=== PATIENT | female | born 2000 | race Caucasian/White ===

== ENCOUNTER 2020-02-22 11:23 | Emergency (ER) | payer OTHER ==
[~2020-02-22] VITALS: Ht 162 cm; Wt 61.2 kg
[2020-02-22 11:42] LABS: BILIRUBIN,URINE NEGATIVE (NEGATIVE); CLARITY,URINE CLEAR; COLOR,URINE YELLOW; GLUCOSE, URINE (UA) NEGATIVE (NEGATIVE); KETONES,URINE TRACE (NEGATIVE); LEUKOCYTE ESTERASE ,URINE NEGATIVE (NEGATIVE); NITRITE,URINE NEGATIVE (NEGATIVE); PH,URINE 5.5 (5-9); PROTEIN,URINE NEGATIVE (NEGATIVE)
[2020-02-22 11:49] LABS: BACTERIA,URINE NEGATIVE /HPF; RBC,URINE 25-50 /HPF; SQUAMOUS EPITHELIAL CELL,UR 0-2 /HPF
[2020-02-22 12:08] LABS: BASOPHILS % (AUTO) 0 % (0-10); EOSINOPHILS # (AUTO) 0.1 10^3/uL (0.0-0.3); EOSINOPHILS % (AUTO) 1 % (0-10); HEMATOCRIT 39 % (35-52); LYMPHOCYTES # (AUTO) 2.1 10^3/uL (1.0-4.0); LYMPHOCYTES % (AUTO) 21 % (12-44); MEAN CORPUSCULAR HEMOGLOBIN 30 pg (25-34); MEAN CORPUSCULAR HGB CONC 33 g/dL (32-36); MEAN CORPUSCULAR VOLUME 92 fL (80-99); MEAN PLATELET VOLUME 9.4 fL (9.0-12.2); MONOCYTES # (AUTO) 0.7 10^3/uL (0.0-1.0); MONOCYTES % (AUTO) 7 % (0-12); NEUTROPHILS # (AUTO) 6.9 10^3/uL (1.8-7.8); NEUTROPHILS % (AUTO) 70 % (42-75); PLATELET COUNT 327 10^3/uL (130-400); WHITE BLOOD COUNT 9.8 10^3/uL (4.3-11.0)
--- NOTE | 2020-02-22 12:11 | ED GU-Female ---
General Chief Complaint: OB < 20 WEEKS Stated Complaint: VAGINAL BLEEDING, CRAMPING 4 WKS Nursing Triage Note: pt presents to ed from home with complaints of vaginal bleeding and lower abdominal cramping starting this am. reports she had a positive preg test on 02/17/20. pt reports her last menstraul period was end of December Source: patient Exam Limitations: no limitations (CASSY BAJWA STUDENT) History of Present Illness Date Seen by Provider: Feb 22, 2020 Time Seen by Provider: 11:35 Initial Comments Ms. Ball is a 19 y/o F who presents to ED with chief complaint of cramping and vaginal bleeding. She said that she has had vaginal bleeding constant since this morning with lower abdominal cramping. Her LMP was "end of December." test on 02/16 was positive. She said cramping and vaginal bleeding now is worse than her normal periods. She said she has not tried to take anything for the cramping, which she rates as an 8/10 pain. She reports passing "blood clots." She has PMH of hypothyroidism on levothyroxine. She denies past surge tim. She said she occasionally drinks EtOH and denies cigarette or drug use. (CASSY BAJWA MED STUDENT) Allergies and Home Medications Allergies Coded Allergies: No Known Drug Allergies (Unverified , 02/22/20) Patient Home Medication List Home Medication List Reviewed: Yes (CASSY BAJWA STUDENT) Review of Systems Review of Systems Constitutional: No chills, No diaphoresis, No dizziness, No fever EENTM: No blurred vision, No nose congestion Respiratory: No cough, No short of breath Cardiovascular: No chest pain, No palpitations Gastrointestinal: No abdominal pain, No constipation, No diarrhea, No nausea, No vomiting Genitourinary: denies flank pain; hematuria : Yes LMP: Jan 14, 2020 Musculoskeletal: No back pain; muscle cramps Skin: no symptoms reported Psychiatric/Neurological: No Symptoms Reported Endocrine: No Symptoms Reported (CASSY BAJWA MED STUDENT) Past Ekoasgm-Idmsqo-Nukgjp Hx Patient Social History Alcohol Use: Occasionally Uses Recreational Drug Use: No Smoking Status: Never a Smoker Recent Foreign Travel: No Contact w/Someone Who Travel: No Recent Infectious Disease Expo: No Recent Hopitalizations: No Physical Abuse: No Sexual Abuse: No Mistreated: No Fear: No (CASSY BAJWA STUDENT) Seasonal Allergies Seasonal Allergies: No (CASSY BAJWA STUDENT) Past Medical History Surgeries: No Respiratory: No Cardiac: No Neurological: No Genitourinary: No Gastrointestinal: No Musculoskeletal: No Endocrine: Yes Hypothyroidsim HEENT: No Cancer: No Psychosocial: No Integumentary: No Blood Disorders: No (CASSY BAJWA STUDENT) Physical Exam Vital Signs Vital Signs - First Documented 02/22/20 02/22/20 11:37 13:57 Temp 35.9 Pulse 79 Resp 20 B/P (MAP) 113/83 Pulse Ox 98 (NILA HAN MD) Vital Signs Capillary Refill : (CASSY BAJWA STUDENT) Height, Weight, BMI Height: '" Weight: lbs. oz. kg; 23.00 BMI Method: General Appearance: WD/WN, no apparent distress HEENT: PERRL/EOMI, normal ENT inspection Neck: full range of motion, normal inspection Cardiovascular: regular rate, rhythm, no edema, no JVD, no murmur Respiratory: chest non-tender, lungs clear, normal breath sounds, no respiratory distress, no accessory muscle use Gastrointestinal: normal bowel sounds, soft, no organomegaly, no pulsatile mass, tenderness (Mild TTP in suprapubic area) Back: normal inspection; No no CVA tenderness Extremities: normal range of motion, non-tender, normal inspection, no calf tenderness, normal capillary refill Neurologic/Psychiatric: no motor/sensory deficits, alert, normal mood/affect, oriented x 3 Skin: normal color, warm/dry (CASSY BAJWA STUDENT) Progress/Results/Core Measures Suspected Sepsis SIRS Temperature: Pulse: Respiratory Rate: Laboratory Tests 02/22/20 12:01: White Blood Count 9.8 Blood Pressure / Mean: Laboratory Tests 02/22/20 12:01: Platelet Count 327 (CASSY BAJWA STUDENT) Results/Orders Lab Results (NILA HAN MD) My Orders (NILA HAN MD) Vital Signs/I&O (NILA HAN MD) Vital Signs/I&O Capillary Refill : (SCHLOEGEL,VAN A MED STUDENT) Progress Note : Progress Note Ms. Ball is a 19 y/o F G1PO who presents to ED with chief complaint of vaginal bleeding and cramping. VSS. We will order HcG quant, CBC, UA, ABO Rh type. Hcg came back lower than what we would expect given her LMP. We will order a transvaginal US to look for an ectopic and then we will advise the patient to follow up early next week to get another hcg measurement. Ultrasound showed no signs of intrauterine or ectopic . We will recommend follow up with Dr. Judge next week to look at trend of hcg. (CASSY BAJWA MED STUDENT) Diagnostic Imaging Diagonstic Imaging: Ultrasound Plain Films/CT/US/NM/MRI: pelvis Comments NAME: RALPH BALL [facility] REC#: [id number] PT STATUS: DEP ER : 2000 PHYSICIAN: NILA HAN MD ADMIT DATE: 02/22/20/ER Signed Date of Exam:02/22/20 US OB TRANSVAGINAL [id number] INDICATION: Pelvic pain and bleeding. FINDINGS: Uterus measures 7.2 x 3.6 x 6.0 cm. Endometrium is 6 mm in thickness. No intrauterine gestational sac is identified. Adnexal evaluation demonstrates right ovary to measure 2.7 x 2.0 x 2.1 cm and left ovary measures 1.8 x 1.1 x 1.6 cm. Both ovaries contain small follicles. There is blood flow to the ovaries. No adnexal mass is detected. There is no free fluid. IMPRESSION: No evidence of intrauterine or adnexal . No acute feature is detected. Dictated by: Dictated on workstation # [id number] Dict: 02/22/20 1344 Trans: 02/22/20 1549 [id number] [id number] Interpreted by: WHITNEY MATTHEW MD Electronically signed by: WHITNEY MATTHEW MD 02/22/20 1549 Reviewed: Reviewed by Me (NILA HAN MD) Departure Impression Primary Impression: Vaginal bleeding during Disposition: 01 HOME, SELF-CARE Condition: Stable Departure-Patient Inst. Decision time for Depature: 13:47 (NILA HAN MD) Referrals: ERNESTO JUDGE MD (PCP/Family) Primary Care Physician Patient Instructions: Dealing With Miscarriage, Miscarriage Add. Discharge Instructions: No was seen in the uterus and no ectopic was seen on your ultrasound. This likely means you have completed a miscarriage. However, it is very important to have a follow-up hormone level obtained in the clinic next week. Please call Dr. Judge's office first thing Tuesday morning to make those arrangements. If your hCG ( hormone) does not continue to decline, you may need further evaluation with repeat ultrasound and serial hCG levels. You may treat pain and cramping with Tylenol (acetaminophen) up to 1000 mg every 6 hours as needed. If this does not control your pain, you may add ibuprofen up to 600 mg every 6 hours. Expect heavy bleeding and cramping for the next couple of days. Return to the emergency room if you have worsening symptoms not managed by [id number] medications or if you develop new symptoms such as lightheadedness, shortness of breath, fever, etc. All discharge instructions reviewed with patient and/or family. Voiced understanding. Medical Student Attestation and Attending Note: This 19-year-old young lady was personally interviewed and examined by me along with the Cassy Bajwa MS4. I have reviewed his documentation including history, physical, and assessments. I agree with his documentation except where otherwise noted. This young lady appears to be having a miscarriage. There was no evidence of ectopic or intrauterine gestation and her hCG was very low. She did not require RhoGam as her blood type was positive. The importance of follow-up on her hCG level was stressed. Work-up was relatively unremarkable. Exam: General: Alert, oriented, no acute distress HEENT: Normocephalic and atraumatic Heart: Regular rate and rhythm without murmur Lungs: Clear to auscultation bilaterally with normal effort Abdomen: soft, mildly tender in the suprapubic region, normal bowel sounds, nondistended. Neuropsych: Alert, oriented, no gross focal deficits. (NILA HAN MD) Copy Copies To 1: ERNESTO JUDGE MD, VAN A MED STUDENT Feb 22, 2020 12:11 NILA HAN MD Feb 22, 2020 13:49
--- NOTE | 2020-02-22 13:49 | Diagnostic Imaging Report ---
INDICATION: Pelvic pain and bleeding. FINDINGS: Uterus measures 7.2 x 3.6 x 6.0 cm. Endometrium is 6 mm in thickness. No intrauterine gestational sac is identified. Adnexal evaluation demonstrates right ovary to measure 2.7 x 2.0 x 2.1 cm and left ovary measures 1.8 x 1.1 x 1.6 cm. Both ovaries contain small follicles. There is blood flow to the ovaries. No adnexal mass is detected. There is no free fluid. IMPRESSION: No evidence of intrauterine or adnexal . No acute feature is detected. Dictated by: Dictated on workstation # [id number]
== END 2020-02-22 13:57 | disposition home or self-care (01) ==
LOC: ER 11:26
DX: O20.9 Hemorrhage in early pregnancy, unspecified (principal); Z3A.00 Weeks of gestation of pregnancy not specified
CPT/HCPCS: 36415; 76817; 81000; 84702; 85025; 86900; 86901